=== PATIENT | male | born 1945 | race Caucasian/White ===

== ENCOUNTER → 2020-12-10 08:04 | Outpatient (CLI) | payer MEDICARE, SELFPAY ==
[2020-12-10 10:16] LABS: COVID19 -Nasal RAPID Negative (Negative)
== END ==
PROVIDERS: Visit Provider Physician Assistant
DX: Z01.812 Encounter for preprocedural laboratory examination (principal); Z20.822 Contact with and (suspected) exposure to COVID-19
CPT/HCPCS: 87635; C9803

== ENCOUNTER 2020-12-12 05:53 | Day surgery (SDC) | payer MEDICARE, SELFPAY ==
[2020-12-11 09:07] VITALS: BMI 25.2
--- NOTE | 2020-12-12 | PATH_ITS ---
[facility] Accession Number: [id number] . 01 Material submitted: . body - RIGHT SECOND INTERSPACE NEUROMA . 01 Diagnosis: Right Second Interspace, Excisions: Fibroconnective tissue with prominent peripheral nerve bundles, consistent with fragments of neuroma. MRV 12/17/2020 0906 Local . 01 Electronically signed: . Fransisco Groves MD, Dermatopathologist NPI- [id number] . 01 Gross description: . The specimen is received in formalin, labeled right second interspace neuroma, and consists of barcenas-white fragments of soft tissue measuring 2.0 x 1.0 x 0.5 cm in aggregate. The fragments are inked blue. The specimen is entirely submitted in cassette A1. ([id number]) ([id number]) /[facility] 12/17/2020 0905 Local . 01 Pathologist provided ICD-10: G57.61 . 01 CPT . 727478 Performed at: 01 [facility] [address] [place] [address], [place], [place] [id number] MD Tariq Ontiveros MD Phone: [phone]
[2020-12-12 06:51] VITALS: BP 136/87; PULSE 53; RESP 16; TEMP 36.7; O2SAT 98; BMI 25.2
[2020-12-12] MEDS: LACTATED RINGERS 1,000 ML 100 ML IV (07:07)
--- NOTE | 2020-12-12 07:34 | PM.PREOP ---
Pre-operative Note COVID-19 COVID-19 status: Negative Result date/Date tested (Pos, Neg/Pending): 12/10/20 Interval Note History & Physical reviewed/Exam performed by Physician: Yes Changes to H&P: No
--- NOTE | 2020-12-12 07:36 | P.OP_ITS ---
Operative Date/Time/Diagnoses Date of procedure: 12/12/20 Time of procedure: 07:50 Pre-op diagnosis: Right second interspace neuroma Post-op diagnosis: same Procedure & Clinicians Procedure: Right second interspace neuroma excision Same procedure as scheduled: Yes Indications: Painful symptoms of neuroma to the right second interspace. Conse rvative measures have failed to alleviate his pain and he wished to have surgical intervention at this time. We discussed the risks, potential complications, expected outcomes. Consent is signed, no contraindications to the procedure at this time. Surgeon: Vandana Mckeon Click Yes if Unassisted: Yes Anesthesia Type: General Operative Notes Closure Type: primary Specimen(s): other (Right second interspace neuroma tissue) Estimated Blood Loss (mL): 10 Blood products transfused: none Tourniquet time (min): 23 Procedure in detail: Patient was brought to the operating room and placed on the operating table in the supine position. After check of anesthesia, an incision was made over the dorsal 2nd interspace of the right foot. The incision was deepened through subcutaneous tissues, being careful to identify and retract all vital neural and vascular structures. All bleeders were cauterized and ligated as necessary. The deep transverse intermetatarsal ligament was cleanly resected and this allowed visualization of the underlying interspace. A large bifurcating bulbous vessel of white shiny tissue consistent with the neuroma was seen. The nerve was cleanly resected at its most proximal aspect allowing it to retract into the musculature and resected 2 distal locations as it fed into the digits. The area was irrigated with copious amounts of normal sterile saline. The specimen was passed from the table and sent to pathology for identification. The tourniquet was deflated, a prompt hyperemic response was seen to the foot. In the most proximal aspect where the nerve had been transected, I used 5 mg of injectable dexamethasone phosphate. The interspace was verified to show no additional nerve tissue and 4-0 Vicryl was used to repair subcutaneous tissues Skin closure performed using 5-0 nylon. The area was dressed with a lightly compressive sterile dressing including Adaptic, 4x4s, conform and Coban. Foot was placed in stockinette and post op shoe and transferred to the PACU with vital signs stable and vascular status intact. Complications: none Post-operative Condition: stable Disposition: PACU Plan for aftercare: Following a period of postoperative monitoring, the patient be discharged to home on written and oral postoperative instructions including keeping the dressing dry and intact, avoiding significant ambulation on the foot, elevating the foot when seated home. DVT prevention techniques have been reviewed. For the 1st postoperative visit the dressing will be changed and in following postoperative weeks we will likely remove the sutures.
[2020-12-12] MEDS: CEFAZOLIN 1 GM VIAL 2 GM IV (08:01)
--- NOTE | 2020-12-12 08:14 | SUR.OPER ---
Supine on padded OR bed, head on pillow, arms secured on padded arm boards at <90 degrees abduction, legs uncrossed, safety belt at thigh, tape over blanket over lower left leg, right leg draped free.
[2020-12-12] MEDS: BUPIVACAINE 0.5% (PF) VIAL 30 ML INJ (08:19)
[2020-12-12] MEDS: DEXAMETHASONE 10 MG/ML VIAL 20 MG INJ (08:45)
[2020-12-12 09:03] VITALS: BP 104/63; PULSE 53; RESP 16; TEMP 36.4; O2SAT 98
[2020-12-12 09:08] VITALS: BP 113/68; PULSE 56; RESP 16; O2SAT 98
[2020-12-12 09:13] VITALS: BP 112/69; PULSE 51; RESP 16; O2SAT 98
[2020-12-12 09:37] VITALS: BP 137/79; PULSE 56; RESP 96; TEMP 36.1
== END 2020-12-12 09:57 | disposition home or self-care (01) ==
PROVIDERS: Referring Provider Family Medicine; Visit Provider Podiatrist
PROC: (CPT 64782; principal; 2020-12-12 07:45)
DX: G57.61 Lesion of plantar nerve, right lower limb (principal); M25.871 Other specified joint disorders, right ankle and foot; E78.5 Hyperlipidemia, unspecified
CPT/HCPCS: 28080; J0690; J1100; J2405; J3010